=== PATIENT | male | born 1955 | race African-American/Black ===

== ENCOUNTER 2018-02-12 15:52 | Emergency (ER) | payer OTHER ==
[~2018-02-12] VITALS: Ht 190.5 cm; Wt 95.3 kg
[2018-02-12 15:54] VITALS: BP 128/87
== END 2018-02-12 16:28 | disposition home or self-care (01) ==
LOC: ER 15:52
DX: S00.03XA Contusion of scalp, initial encounter (principal); W22.8XXA Striking against or struck by other objects, initial encounter; Y93.89 Activity, other specified; Y92.89 Other specified places as the place of occurrence of the external cause; Y99.8 Other external cause status